=== PATIENT | male | born 1945 | race Caucasian/White ===

== ENCOUNTER → 2017-04-01 | Outpatient (CLI) | payer OTHER ==
[~2017-04-01] MED LIST: FLUT16SP19 NS; IOPAMIDOL 76% 75 ML INFUS BTL 0 ML ONE; IOPAMIDOL 76% 75 ML INFUS BTL 75 ML ONE; MET60GMPT TOP; MULT-820 PO; NS 0.9% 50 ML VIAL 0 ML ONE; NS 0.9% 50 ML VIAL 50 ML ONE; PANT40TA65 PO
--- NOTE | 2017-04-01 10:27 | RADIOLOGY IMAGING REPORT ---
FACILITY: [facility] PATIENT NAME: Fredy Bryant : 1945 MR: [id number] V: [id number] EXAM DATE: ORDERING PHYSICIAN: LAILA MIN TECHNOLOGIST: Location: [facility] Patient: Fredy Bryant : 1945 Visit/Account:[id number] Date of Sevice: 04/01/2017 THYROID HISTORY: Problems swallowing COMPARISON: October 10, 2007 FINDINGS: SIZE: Right lobe: 5.2 x 2.3 x 2.5 cm Left lobe: 5.1 x 1.4 x 1.3 cm Isthmus: 4 mm PARENCHYMA: Heterogeneous NODULES: Right lobe: * There is a large heterogeneous hypervascular mass encompassing much of the right lobe measuring 3. 6 x 2.2 x 2.8 cm. This has increased in size when compared to the prior study and appears to contain internal calcifications. Left lobe: * There are scattered hypoechoic nodules in the left lobe ranging in size between 3 mm and 9 mm Isthmus: * None discrete. VASCULARITY: Within normal limits. ADDITIONAL FINDINGS: None. IMPRESSION: There is a large heterogeneous 3.6 cm hypervascular nodule encompassing much of the right lobe of the thyroid gland containing internal calcifications. This is increased in size when compared the prior study. Ultrasound-guided fine-needle aspiration is recommended. Scattered hypoechoic nodules in the left lobe measuring up to 9 mm REFERENCE: 2015 [employer] Management Guidelines for Adult Patients with Thyroid Nodules and D ifferentiated Thyroid Cancer: The [place] Guidelines Task Force on Thyroid Nodul es and Differentiated Thyroid Cancer. SONOGRAPHIC PATTERNS: * Benign: Purely cystic nodules (no solid component); estimated risk of malignancy <1 percent; no bi opsy recommended. * Very Low Suspicion: Spongiform or partially cystic nodules without any of the sonographic features described in low, intermediate, or high suspicion patterns; estimated risk of malignancy <3 percent; consider FNA at > 2 cm (Observation without FNA is also a reasonable option). * Low Suspicion: Isoechoic or hyperechoic solid nodule, or partially cystic nodule with eccentric so lid areas, without microcalcification, irregular margin or ETE (extra-thyroidal extension), or taller than wide shape; estimated risk of malignancy 5-10 percent; recommend FNA at >1.5 cm. * Intermediate Suspicion: Hypoechoic solid nodule with smooth margins without microcalcifications, E TE (extra-thyroidal extension), or taller than wide shape; estimated risk of malignancy 10-20 percent ; recommend FNA at > 1 cm. * High Suspicion: Solid hypoechoic nodule or solid hypoechoic component of a partially cystic nodule with one or more of the following features: irregular margins (infiltrative, microlobulated), microc alcifications, taller than wide shape, rim calcifications with small extrusive soft tissue component, evidence of ETE (extra-thyroidal extension); estimated risk of malignancy >70-90 percent; recommend FNA at > 1 cm. NOTES: * Although a sonographically suspicious subcentimeter thyroid nodule without evidence of extrathyroi rose extension or sonographically suspicious lymph nodes may be observed with close sonographic follow -up rather than pursuing immediate FNA, patient age and preference may modify decision-making. A > 50% interval increase in nodule volume and/or development of new suspicious sonographic features are felt to be a valid reasons for potential re-aspiration of a nodule previously shown to have benig n FNA cytology. Report Dictated By: Kaycee Live MD at 04/01/2017 10:19 AM Report E-Signed By: Kaycee Live MD at 04/01/2017 10:23 AM MARISOLN:AMADOU
--- NOTE | 2017-04-01 10:43 | RADIOLOGY IMAGING REPORT ---
[place] [facility] [place] NAME: Fredy Bryant : 1945 MR: [id number] V: [id number] EXAM DATE: ORDERING PHYSICIAN: LAILA MIN TECHNOLOGIST: Location: [facility] Patient: Fredy Bryant : 1945 Visit/Account:[id number] Date of Sevice: 04/01/2017 CT ABDOMEN WITH AND WITHOUT CONTRAST CLINICAL INFORMATION: Liver mass TECHNIQUE: Axial CT images were obtained through the abdomen before and after injection of nonionic iodinated intravenous contrast. Reformatted coronal and sagittal images were also obtained. Pre cont rast and delayed images were obtained. Dose Lowering Technique One of the following dose optimization techniques was utilized in the performance of this exam: Autom ated exposure control; adjustment of the mA and/or kV according to the patient's size; or use of an i terative reconstruction technique. Specific details can be referenced in the facility's radiology C T exam operational policy. CONTRAST: 75ml of IV Isovue-370 contrast. COMPARISON: CT chest March 10, 2017. FINDINGS: Lower lung segovia: Limited views lower lung field are unremarkable. Liver: There Is a 2.1 x 1.6 cm x 1.5 mass in the lateral aspect right lobe of the liver. This exhibi ts some mild peripheral enhancement on the arterial phase images with some nodular internal enhanceme nt on the portal venous phase images. This appears to be further slight internal enhancement on the delayed images that follows blood pool. A typical hemangioma would demonstrate greater contrast enha ncement on the venous and delayed images although this could represent an atypical presentation of a hemangioma. Other solid hepatic lesions however are included in the differential diagnosis.. Biliary: Gallbladder appears unremarkable as well as the intra and extra hepatic biliary system. Pancreas: Normal appearance. Spleen: Normal appearance. Adrenal glands: Unremarkable. Kidneys / retroperitoneum: Subcentimeter hypodensity interpolar region of the left kidney is too smal l to characterize Bowel / peritoneum / mesenteries: The visualized small and large bowel appear unremarkable. Vessels: No significant atherosclerotic calcification seen throughout a nonaneurysmal abdominal aorta and branches. Musculoskeletal / Body wall: There are spondylotic changes of the visualized thoracolumbar spine. Th ere is a bulging disc at L4-5 Lymph node assessment: No pathologic adenopathy identified. IMPRESSION: 1. There is a 2.1 x 1.6 x 1.5 cm mass in the periphery of the right lobe the liver that exhibits mil d peripheral contrast enhancement on the arterial phase images with subtle nodular internal enhanceme nt on the portal venous phase images and further slight internal enhancement on the delayed images wh ich follows blood pool. A typical hemangioma with demonstrate greater contrast enhancement on the ve nous and delayed images although this could represent an atypical presentation of a hemangioma. Othe r solid hepatic lesions are not excluded. Short-term interval follow-up in three months versus an MR of the liver with and without contrast recommended for further evaluation depending upon the clinica l presentation and history.. 2. 3. Report Dictated By: Kaycee Live MD at 04/01/2017 10:23 AM Report E-Signed By: Kaycee Live MD at 04/01/2017 10:38 AM WSN:[email or web address]
== END ==
LOC: CT 03-25 01:00
PROVIDERS: ATTEND Nurse Practitioner Family
DX: E04.2 Nontoxic multinodular goiter (principal); R16.0 Hepatomegaly, not elsewhere classified; K76.89 Other specified diseases of liver
CPT/HCPCS: 74170; 76536; J7050; Q9967

== ENCOUNTER 2017-04-12 08:23 | Outpatient (RCR) | payer OTHER ==
[~2017-04-12 08:23] MED LIST changes: -IOPAMIDOL 76% 75 ML INFUS BTL 0 ML ONE; -IOPAMIDOL 76% 75 ML INFUS BTL 75 ML ONE; -NS 0.9% 50 ML VIAL 0 ML ONE; -NS 0.9% 50 ML VIAL 50 ML ONE
[2017-04-12 08:59] LABS: INR 1.04
[2017-04-14] MEDS ORDERED: GADOBENATE 529MG/1ML 15ML VIAL IVP ONE (10:17)
[2017-04-14] MEDS ORDERED: NS 0.9% 50 ML VIAL 50 ML ONE (10:17)
--- NOTE | 2017-04-14 15:24 | RADIOLOGY IMAGING REPORT ---
FACILITY[place] [facility] [place] NAME: Fredy Bryant : 1945 MR: [id number] V: [id number] EXAM DATE: ORDERING PHYSICIAN: LAILA MIN TECHNOLOGIST: Location: [facility] [place] Patient: Fredy Bryant : 1945 Visit/Account:[id number] Date of Sevice: 04/14/2017 ABDOMEN W W/O CONTRAST HISTORY: Liver mass ADDITIONAL HISTORY: None. TECHNIQUE: TECHNIQUE: Multiplanar multisequence magnetic resonance imaging of the abdomen without a nd with intravenous contrast. CONTRAST: 15 mL of MultiHance COMPARISON: CT abdomen April 01, 2017 FINDINGS: Visualized lung bases: Grossly unremarkable. Liver: The lateral aspect of the right lobe the liver there is a 1.5 x 1.5 x 1.3 cm hyperintense mass on the T2-weighted images. This does demonstrate mild puddling type contrast enhancement on the art erial phase images with slightly increased puddling type contrast enhancement on the delayed images. This does not completely enhance with contrast on the delayed images although likely represents an a typical presentation of a hemangioma. Gallbladder: Negative. Bile ducts: Nondistended and unremarkable. Spleen: Negative. Adrenal glands: Negative. Pancreas: Negative. Kidneys: Tiny left renal cysts Vessels/spaces/nodes: No bulky adenopathy or ascities. Visualized GI: Grossly unremarkable. Bones/soft tissues: Unremarkable. IMPRESSION: There is a 1.5 x 1.5 x 1.3 cm mass in the lateral aspect right lobe of the liver with contrast enhanc ement pattern not entirely typical of a benign hemangioma although most likely represents an atypical presentation of a hemangioma a follow-up CT or MR is recommended in six months unless clinical findi ngs warrant more immediate attention Report Dictated By: Kaycee Live MD at 04/14/2017 3:09 PM Report E-Signed By: Kaycee Live MD at 04/14/2017 3:20 PM WSN:[email or web address]
--- NOTE | 2017-04-14 16:58 | RADIOLOGY IMAGING REPORT ---
FACILITY: [facility] PATIENT NAME: Fredy Bryant : 1945 MR: [id number] V: [id number] EXAM DATE: ORDERING PHYSICIAN: LAILA MIN TECHNOLOGIST: Location: [facility] [place] Patient: Fredy Bryant : 1945 Visit/Account:[id number] Date of Sevice: 04/14/2017 Exam type: THYROID BIOPSY FINE NEEDLE ASP History: Right-sided thyroid nodule Comparison: Thyroid ultrasound April 01, 2017. Findings: Informed consent was obtained. The right-sided the patient's neck was prepped and draped in usual st erile fashion. Local anesthesia was accomplished with 1% lidocaine. Under sonographic guidance thre e 25-gauge FNA biopsies were obtained through the large complex right-sided thyroid nodule. [facility] given to the chief technologist for processing. The procedure was without apparent comp lication. IMPRESSION: 1. Successful sonographically guided right-sided FNA biopsy of the complex right thyroid mass Report Dictated By: Kaycee Live MD at 04/14/2017 4:53 PM Report E-Signed By: Kaycee Live MD at 04/14/2017 4:54 PM WSN:[email or web address]
== END 2017-04-14 18:00 | disposition home or self-care (01) ==
LOC: MRI 08:23
PROVIDERS: ATTEND Nurse Practitioner Family
DX: K76.89 Other specified diseases of liver (principal); E04.1 Nontoxic single thyroid nodule
CPT/HCPCS: 10022; 36415; 74183; 76942; 82565; 85610; 88104; 88172; A9577; J7050

== ENCOUNTER → 2017-06-08 | Outpatient (CLI) | payer OTHER ==
--- NOTE | 2017-06-08 14:00 | EKG ---
FACILITY: [facility] [place] PATIENT NAME: BENSON JAVED : [id number] MR: [id number] V: [id number] EXAM DATE: ORDERING PHYSICIAN: JOSE GONZALEZ TECHNOLOGIST: Julio Baca Reason : Blood Pressure : / mmHG Vent. Rate : 080 BPM Atrial Rate : 080 BPM P-R Int : 174 ms QRS Dur : 088 ms QT Int : 392 ms P-R-T Axes : 078 084 068 degrees QTc Int : 452 ms Normal sinus rhythm Normal ECG No previous ECGs available Confirmed by SAVANAH MCHUGH ([id number]) on 06/08/2017 11:45:58 PM Referred By: Confirmed By:SAVANAH MCHUGH
== END ==
LOC: RESP 13:50
PROVIDERS: ATTEND Otolaryngology
DX: Z01.810 Encounter for preprocedural cardiovascular examination (principal); E04.9 Nontoxic goiter, unspecified
CPT/HCPCS: 93005

== ENCOUNTER → 2017-06-11 | Outpatient (CLI) | payer OTHER ==
[2017-06-11 07:31] LABS: PLATELET COUNT, AUTOMATED 240 K/uL (150-450)
== END ==
LOC: LAB 07:12
PROVIDERS: ATTEND Nurse Practitioner Family
DX: E04.9 Nontoxic goiter, unspecified (principal); R53.83 Other fatigue
CPT/HCPCS: 36415; 82040; 82247; 82310; 82374; 82435; 82565; 82947; 84075; 84132; 84155; 84295; 84443; 84450; 84460; 84520; 85025

== ENCOUNTER 2017-06-18 01:51 | Observation (INO) | payer OTHER ==
[2017-06-18] VITALS (12 sets, daily range): BP systolic 108–143; BP diastolic 61–96
[~2017-06-18] VITALS: Ht 177.8 cm; Wt 77.1 kg
[2017-06-18] MEDS ORDERED: FAMOTIDINE 20 MG TAB PO ONE (06:15)
[2017-06-18] MEDS ORDERED: MIDAZOLAM 2 MG/2 ML VIAL IVP PRN (06:30)
[2017-06-18] MEDS ORDERED: LIDOCAINE/SOD BICARB 8.4% SYR ID ONE (06:30)
[2017-06-18] MEDS ORDERED: LIDO/EPI 1% MDV 1:100,000 20ML INFIL ONE (06:30)
[2017-06-18] MEDS ORDERED: ceFAZolin(*) 2GM/D5W 50ML 50 ML IVPB ONE (06:30)
[2017-06-18] MEDS ORDERED: OFLOXACIN 0.3% OP SOLN 5ML BTL ONE (06:30)
[2017-06-18] MEDS ORDERED: NORMOSOL R SOLN(*) 1000 ML BAG 1,000 ML IV PRN (06:30)
[2017-06-18] MEDS ORDERED: LIDOCAINE 2% IV 100 MG/5ML SYR ONE (07:13)
[2017-06-18] MEDS ORDERED: fentaNYL CITR 250 MCG/5 ML AMP ONE (07:13)
[2017-06-18] MEDS ORDERED: PROPOFOL EMUL(*) 10MG/ML 20 ML 20 ML ONE ×2 (07:14→07:34)
[2017-06-18] MEDS ORDERED: DEXAMETHASONE SOD PHOS 10MG/ML ONE (07:38)
[2017-06-18] MEDS ORDERED: ePHEDrine 25 MG/5 ML DISP.SYR IVP ONE ×2 (07:40→07:58)
[2017-06-18] MEDS ORDERED: ONDANSETRON 4 MG/2 ML VIAL ONE (08:10)
[2017-06-18] MEDS ORDERED: LR(*) 1000 ML BAG 1,000 ML IV PRN (09:04)
--- NOTE | 2017-06-18 09:04 | Post Operative Note ---
Operative Note - ENT Operative Day Date: Jun 18, 2017 Physicians Surgeon: Davis Floater Operator: Aimee Anesthesia: GETA Diagnosis Pre-Op Diagnosis: right ETD uninodular goiter Post-Op Diagnosis: same Procedure Procedure(s): right myringotomy and tympanostomy tube placement right thyroid lobectomy Specimen Removed:(Maybe N/A): right thyroid lobe Complications: none Fluids Estimated Blood Loss: 50 ml JOSE GONZALEZ JR, MD Jun 18, 2017 09:03
[2017-06-18] MEDS ORDERED: APAP/HYDROCODONE 325/5 TAB PO PRN (09:05)
[2017-06-18] MEDS ORDERED: MORPHINE 2 MG/ML SYR IVP PRN (09:05)
[2017-06-18] MEDS ORDERED: ACETAMINOPHEN 325 MG TAB PO PRN (09:05)
[2017-06-18] MEDS ORDERED: ONDANSETRON 4 MG ODT TABDP SL PRN (09:05)
--- NOTE | 2017-06-18 14:46 | OPERATIVE REPORT 1 ---
EVENT DATE: June 18, 2017 SURGEON: Gokul Cannon MD ANESTHESIOLOGIST: Jose Angel Carolina MD ANESTHESIA: General endotracheal. VICE PRESIDENT INTEGRATED: Brittni Yu PROCEDURES PERFORMED 1. Right thyroid lobectomy. 2. Right myringotomy and tympanostomy tube insertion. PREOPERATIVE DIAGNOSES 1. Uninodular goiter. 2. Right eustachian tube dysfunction. POSTOPERATIVE DIAGNOSES 1. Uninodular goiter. 2. Right eustachian tube dysfunction. INDICATIONS Please refer to the preoperative note. DESCRIPTION OF PROCEDURE The patient was positively identified in the preoperative area. He was accompanied there by his . Risks were again explained and included, but were not limited to bleeding, infection, tympanic membrane perforation, injury to the recurrent laryngeal nerve, transient or permanent dysphonia, and those associated with anesthesia. He acknowledged understanding of those risks. He was then brought back to the operating suite, laid supine on the operating table , and anesthesia was administered. Once asleep, the patient was positioned for the tympanostomy tube placement. A speculum was placed in the right external auditory canal. The microscope was mounted in place. The tympanic membrane was visualized. A myringotomy was then made in the anterior-inferior quadrant. A T-tube was then carefully placed through the myringotomy and positioned into place. Floxin drops were instilled. The patient was then repositioned for the thyroidectomy. A favorable neck crease was identified overlying the thyroid gland. An approximately 5 cm incision was planned and marked. Approximately 2 mL of 1% lidocaine with epinephrine was infiltrated. The patient was then prepped and draped in the usual sterile fashion. The aforementioned incision was then made with a 15 blade. The underlying subcutaneous tissue was then dissected with Bovie electrocautery. The platysma muscle was identified and divided with Bovie electrocautery. Subplatysmal flaps were elevated superiorly to the level of the thyroid notch and inferiorly to the above the sternal notch. The strap musculature was identified and divided along the median raphe. The strap musculature was then carefully carefully elevated off the right thyroid lobe. This was found to be markedly enlarged. I then dissected out the superior pole vessels. This was come across with the Harmonic scalpel. I then carefully dissected the lobe from the surrounding connective tissue. Both parathyroid glands were felt to be identified and preserved in situ. The recurrent laryngeal nerve was identified and traced to its entrance into the trachea. I then came across the inferior lobe vessels with the Harmonic scalpel. I then carefully rotated the lobe medially and divided it from the trachea at Sharif ligament. The Harmonic scalpel was then utilized to divide the right lobe and isthmus from the left lobe. This was sent for permanent pathology. The wound was then copiously irrigated with normal saline solution. A Valsalva maneuver was performed. Hemostasis was assumed. Surgicel Fibrillar was placed in the wound bed. The strap muscles and the platysma were then closed with interrupted chromic stitch. The skin was then closed in a multilayer fashion. The patient was then turned to Anesthesia for emergency. Estimated blood loss was 50 mL. There were no complications. MTDD
[2017-06-18] MEDS ORDERED: OFLO10DR3 RIGHT EAR (16:21)
[2017-06-18] MEDS ORDERED: LOR5/325 PO (16:21)
[2017-06-18] MEDS ORDERED: CEFU500T10 PO (16:21)
== END 2017-06-18 16:21 | disposition home or self-care (01) ==
LOC: OR 01:51 → MED 09:55
PROVIDERS: ADMIT Otolaryngology; ATTEND Otolaryngology
DX: E04.1 Nontoxic single thyroid nodule (principal); H69.81 Other specified disorders of Eustachian tube, right ear
CPT/HCPCS: 60225; 88307; G0378; J1100; J2001; J2405; J2704; J3010; J0690

== ENCOUNTER → 2017-07-14 | Outpatient (REF) | payer OTHER ==
[~2017-07-14] MED LIST changes: +CEFU500T10 PO; +LOR5/325 PO; +OFLO10DR3 RIGHT EAR
== END ==
LOC: ZZSENDIN 12:00
PROVIDERS: ATTEND Urology
DX: C61 Malignant neoplasm of prostate (principal)
CPT/HCPCS: 88305; 88344

== ENCOUNTER → 2017-09-28 | Outpatient (CLI) | payer OTHER ==
[~2017-09-28] MED LIST changes: +BARIUM SULFATE 148 GM POWDER ONE; +BARIUM SULFATE 240 ML ORAL SUS (NECTAR) ONE; +MULT1CAP59 PO
--- NOTE | 2017-09-28 13:20 | RADIOLOGY IMAGING REPORT ---
[place] [facility] [place]IENT NAME: Fredy Bryant : 1945 MR: [id number] V: [id number] EXAM DATE: ORDERING PHYSICIAN: NELIA RDORIGUEZ TECHNOLOGIST: Location: [facility] [place] Patient: Fredy Bryant : 1945 Visit/Account:[id number] Date of Sevice: 09/28/2017 Exam type: ESOPH VIDEO SWALLOWING History: Dysphasia Comparison: None. Findings: The modified barium swallow was performed by speech pathologist. The patient received various liquid s and solids and a portion of the barium tablet. Please see the speech pathologist report for comple te details. The fluoroscopy dose area product was 374.45 micro-Coll[place] per meter squared. IMPRESSION: 1. As above Report Dictated By: Kaycee Live MD at 09/28/2017 1:15 PM Report E-Signed By: Kaycee Live MD at 09/28/2017 1:17 PM WSN:[email or web address]
--- NOTE | 2017-09-28 15:03 | SLP MODIFIED BARIUM SWALLOW ---
Speech Language Pathology Modified Barium Swallow Evaluation Report Date of Evaluation: 09/28/17 Patient Name: Fredy Bryant Patient : 1945 Physician: Dr. Luis Antonio Henriquez Clinician: Samira Mario M.S., [facility]OUR[facility] Brittni Mckee B.A., [facility] [place] BACKGROUND The patient is a 72 yr old male. The patient was referred for an MBS by his physician to assess swallow structure and function as indicated by s/s of pharyngeal dysphagia including coughing/choking, nasal regurgitation, prolonged mastication, and a globus sensation upon the initiation of the swallow. Pt reports xerostomia and inability to produce saliva. 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 Oxygen Supplementation: No Level of Consciousness: Non altered Cognitive/Linguistic: WNL Orientation: x3 Language: -expressive: nonaphasic -receptive: nonaphasic Speech: -non-apraxic -non-dysarthric Voice -Dysphonia: none -Nasal emission: Yes -Hypernasality: No -Hyponasality: Yes -Wet Vocal Quality: No Non-verbal Oral Structure and Function: minimal elevation of vellum during oral [facility] exam (performed condensed oral [facility] exam due to time restraints) Pain with Swallow: Denies MODIFIED BARIUM SWALLOW In conjunction with radiology, lateral view and A/P view with trials of the following consistencies: thin barium liquid (carbonated/noncarbonated), nectar thick barium liquid, barium marked pureed, mechanical soft, regular food, mixed consistencies, and a 1cm barium pill. ORAL STAGE Thin Liquids: Moderate dysphagia witnessed. Slow A-P transit with delayed swallow initiation. Unproductive tongue pumping observed. Reduced posterior tongue function/elevation resulting in poor bolus control entering the oropharynx. Bolus residue on posterior lingual surface. [place] Thick Liquids: Moderate dysphagia witnessed. Slow A-P transit with delayed swallow initiation. Unproductive tongue pumping observed. Reduced posterior tongue function/elevation resulting in poor bolus control entering the oropharynx. Bolus residue on posterior lingual surface. Pureed Foods: Moderate dysphagia witnessed. Slow A-P transit with delayed swallow initiation. Unproductive tongue pumping observed. Mechanical Soft Foods: Moderate dysphagia witnessed. Slow A-P transit with delayed swallow initiation. Unproductive tongue pumping observed. Regular Foods: Moderate dysphagia witnessed. Slow A-P transit with delayed swallow initiation. Unproductive tongue pumping observed. Reduced posterior tongue function/elevation resulting in poor bolus control entering the oropharynx. Mixed: Moderate dysphagia witnessed. Slow A-P transit with delayed swallow initiation. Unproductive tongue pumping observed. Reduced posterior tongue function/elevation resulting in poor bolus control entering the oropharynx. Bolus residue on posterior lingual surface. Barium Pill: no evidence of dysphagia. WNL. PHARYNGEAL STAGE Thin Liquid: Moderate to severe evidence of dysphagia. 15ml Penetration/ Aspiration scale*-Level 5: material enters the airway, contacts the vocal folds , and is not ejected from the airway. Cup rim sip, Penetration/Aspiration scale* - Level 3: material enters the airway, remains above the vocal folds, and is not ejected from the airway. Compensatory: Chin tuck, Penetration/Aspiration scale*- Level 3: material enters the airway, remains above the vocal folds, and is not ejected from the airway. [place] Thick Liquids: Moderate to severe evidence of dysphagia. Penetration/ Aspiration Scale*- Level 1: material does not enter airway. Significant residuals in epiglottic vallecula and pyriform sinus not cleared with cued second or third swallows. Moderate residuals on anterior pharyngeal wall. Poor UES function Pureed Food: Moderate evidence of dysphagia. Moderate residuals on anterior pharyngeal wall, epiglottic vallecula, and pyriform sinus with pooling at UES. Delayed onset of swallow and premature spillage into epiglottic vallecula.. Compensatory: Not cleared with second swallow. Mechanical Soft Foods: Moderate to severe evidence of dysphagia. Penetration/ Aspiration scale*- Level 2 material enters the airway, remains above the vocal folds, and is ejected from the airway. Moderate residuals on anterior pharyngeal wall. Significant stasis at epiglottic vallecula and pyriform sinus not cleared with cued second swallow or liquid wash. With liquid wash, Penetration/Aspiration scale*- Level 2: material enters the airway, remains above the vocal folds, and is ejected from the airway. Regular Food Consistency: Moderate evidence of dysphagia. Moderate stasis at epiglottic vallecula and pyriform sinus with smaller than average bolus, cleared with second cued swallow. Mixed Food Consistency: Severe evidence of dysphagia. Penetration/Aspiration scale*- Level 8 material enters the airway, passes below the vocal folds, and no effort is made to eject. of 1 cm barium pill: Severe evidence of dysphagia. Pill stuck at level of epiglottic vallecula not cleared with thin liquid, nectar liquid, puree, supraglottic swallow, regular food consistency, head turn to the right or left, chin tuck, or carbonated liquid. *(Leona et al. 1996) ESOPHAGEAL STAGE Narrowing observed inferior to UES. Pt reported previous unsuccessful dilation attempts. Cervical Esophagus: Materials witnessed clearing from cervical esophagus WNL. Thoracic Esophagus: Materials witnessed clearing from upper/mid/lower thoracic esophagus WNL. KAMARI: none witnessed. Laryngopharyngeal Reflux (LPR) No material reached proximal esophagus or was regurgitated passed UES into pharynx. SUMMARY Aspiration Risk: Increased d/t severe stasis in epiglottic vallecula and pyriform sinus with thin liquids and all food consistencies and evidence of silent aspiration on mixed consistencies and penetration on thin liquid, mechanical soft and flash penetration with nectar thick with barium pill. BOT, pharyngeal and hyolaryngeal movement all appear to be decreased. Stasis in pyriform sinus may be d/t decreased UES opening or narrowing inferior to UES. Pt does not consistently reswallow to clear stasis and reports consuming all food with liquid. Chin tuck with thin liquid appeared to increase stasis in the vallecula. Pt located a globus sensation by pointing above thyrohyoid cartilage. Severe oral stage dysphagia witnessed. Poor bolus formation and propulsion may be d/t poor posterior lingual function/elevation. Decreased posterior elevation and movement of the vellum decreases contact with posterior pharyngeal wall, increasing the risk of nasal regurgitation. Asymmetrical movement of liquid and solid boluses to the left through the pharynx were witnessed during AP view. Cues for chin tuck to protect airway during thin liquid swallow: Unsuccessful Head turn/tilt left or right did not significantly improve swallow function. 1.Dysphagia Severity Rating Scale (Gramigna, 2006; Juju et. al., 1990): Moderate dysphagiasignificant potential for aspiration exists. Trace aspiration of one or more consistencies may be seen under videofluoroscopy. Patient may eat certain consistencies by using specific techniques to minimize potential for aspiration and/or to facilitate swallowing. 2. Diet: No need for modification in consistency of diet is indicated. 2. Modification in consistency of diet is indicated. 3. Patient was provided with verbal education regarding swallow anatomy and safe swallow recommendations. RECOMMENDATIONS Verbal and written information provided at time of evaluation. 1. Speech Therapy: 3x week for patient education and oral / laryngeal / pharyngeal / dysphagia therapy program. 2. Diet Modifications: Dysphagia Diet- Level 6: Total oral intake with no special preparation, but must avoid specific foods or liquid items 3. Pills: Crushed with thickened liquids or purees. RECOMMENDATIONS Verbal and written information provided at time of evaluation. 1. Provide Pt education on swallow safety 2. Swallow Therapy 3wk/12wk PLAN OF CARE Short Term Goals 1. Patient will receive education regarding safe swallow precautions, diet modification, and compensatory techniques and provide verbal demonstration of comprehension. 2.The patient will participate in an 12wk dysphagia exercise based therapy program to address oropharyngeal dysphagia. 3. Patient will complete oral motor exercises to increase oral strength , accuracy and coordination of lingual, buccal, labial muscles for mastication and bolus manipulation of regular food consistencies without signs of oral stage dysphagia. Thank you for this referral. Please call [phone] to contact the [employer]LECT[employer] JOURNEYMAN. Samira Mario M.S., [facility] [*] POPPYD
== END ==
LOC: RAD 07:31
PROVIDERS: ATTEND Otolaryngology
DX: R13.11 Dysphagia, oral phase (principal); R13.13 Dysphagia, pharyngeal phase; R13.19 Other dysphagia
CPT/HCPCS: 74230

== ENCOUNTER 2017-10-12 11:26 | Outpatient (RCR) | payer OTHER ==
--- NOTE | 2017-10-04 10:12 | RADIOLOGY IMAGING REPORT ---
FACILITY: [facility] PATIENT NAME: Fredy Bryant : 1945 MR: [id number] V: [id number] EXAM DATE: ORDERING PHYSICIAN: MAGDY COPELAND TECHNOLOGIST: [facility] Patient: Fredy Bryant : 1945 Visit/Account:[id number] Date of Sevice: 10/04/2017 EXAMINATION: Orbit radiograph single view HISTORY: Pre-MRI screening. History of working in metal shop. COMPARISON: None. FINDINGS: Single view of the orbits is obtained. No radiopaque or metallic foreign bodies of either orbit. Visualized bony structures are intact. IMPRESSION: Orbits are cleared for MRI. Report Dictated By: Anna Cristina MD at 10/04/2017 10:07 AM Report E-Signed By: Anna Cristina MD at 10/04/2017 10:08 AM WSN:[id number]
--- NOTE | 2017-10-04 14:02 | RADIOLOGY IMAGING REPORT ---
FACILITY: [facility] PATIENT NAME: Fredy Bryant : 1945 MR: [id number] V: [id number] EXAM DATE: ORDERING PHYSICIAN: MAGDY COPELAND TECHNOLOGIST: Location: [facility] - [place], [place] Patient: Fredy Bryant : 1945 Visit/Account:[id number] Date of Sevice: 10/04/2017 ABDOMEN W W/O CONTRAST HISTORY: Indeterminant hepatic mass; follow-up. TECHNIQUE: Multiplanar multisequence magnetic resonance imaging of the abdomen without and with intr avenous contrast. CONTRAST: 15 mL MultiHance IV COMPARISON: 04/14/2017 MRI, 04/01/2017 CT FINDINGS: Visualized lung bases: Negative. Liver: Within normal limits for size and morphology. No MR evident steatosis. Within hepatic segme nt 5 is a 1.4 x 1.7 cm T2 hyperintense and T1 hypointense lesion, not significantly changed allowing for differences in measurement technique and with slowly progressive centripetal nodular enhancement isointense to blood pool, again most consistent with a benign cavernous hemangioma. Gallbladder: Negative. Bile ducts: Nondistended and grossly unremarkable. Spleen: Negative. Adrenals: Negative. Pancreas: Stable, approximately 1 cm, macroscopic fatty focus within pancreatic tail, not significan tly changed from CT 02/2017 and most likely invagination of adjacent peripancreatic fat versus a smal l lipoma. Kidneys/: Several small cortical and peripelvic cysts left greater than right kidney. Visualized GI: Grossly unremarkable. Vessels/spaces/nodes: Mild aortic atherosclerosis. No adenopathy. No free fluid. Bones/soft tissues: Unremarkable. IMPRESSION: 1. Stable right hepatic lesion most consistent with benign cavernous hemangioma. 2. Other chronic and/or benign-appearing changes detailed above. Report Dictated By: Zane Shen MD at 10/04/2017 1:43 PM Report E-Signed By: Zane Shen MD at 10/04/2017 1:59 PM WSN:[id number]
[~2017-10-12 11:26] MED LIST changes: -BARIUM SULFATE 148 GM POWDER ONE; -BARIUM SULFATE 240 ML ORAL SUS (NECTAR) ONE; +GADOBENATE 529MG/1ML 15ML VIAL IVP ONE; +NS 0.9% 25 ML BAG 0 ML ONE; +NS 0.9% 25 ML BAG 50 ML ONE
[2017-10-12] MEDS ORDERED: LEVO50TA86 PO (17:35)
== END 2017-10-13 13:47 | disposition home or self-care (01) ==
LOC: RAON 11:26
PROVIDERS: ATTEND Radiology Radiation Oncology
DX: C61 Malignant neoplasm of prostate (principal); Z85.22 Personal history of malignant neoplasm of nasal cavities, middle ear, and accessory sinuses; Z92.3 Personal history of irradiation; R93.5 Abnormal findings on diagnostic imaging of other abdominal regions, including retroperitoneum
CPT/HCPCS: 36415; 70030; 74183; 82565; 99212; 99213; A9577

== ENCOUNTER 2017-12-13 13:15 | Outpatient (RCR) | payer MEDICARE, OTHER ==
[~2017-12-13 13:15] MED LIST changes: -GADOBENATE 529MG/1ML 15ML VIAL IVP ONE; +LEVO50TA86 PO; -NS 0.9% 25 ML BAG 0 ML ONE; -NS 0.9% 25 ML BAG 50 ML ONE
--- NOTE | 2017-12-17 12:18 | SWALLOW EVALUATION ---
Speech Therapy Dysphagia Evaluation Date of Evaluation: 12-13-17 Patient Name: Fredy Bryant Patient : 1945, 72yr Physician: Dr. Luis Antonio Henriquez Clinician: Valerie Wang MS, CCC-ACID WASH OPERATOR BACKGROUND The patient's preferred name is Juan'. 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 Current symptoms include dysphagia include coughing/choking with meals, nasal regurgitation of food and liquid, prolonged mastication, and globus sensation following solids swallow. 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 He received an esophageal dilation approximately 1.5 years ago. He reports decreased symptoms for approximately 6m post procedure. He received an MBS at [facility] on 09-28-2017 with results as described below. EVALUATION MBS Results 09-28-17: Aspiration Risk: Increased d/t severe stasis in epiglottic vallecula and pyriform sinus with thin liquids and all food consistencies and evidence of silent aspiration on mixed consistencies and penetration on thin liquid, mechanical soft and flash penetration with nectar thick with barium pill. BOT, pharyngeal and hyolaryngeal movement all appear to be decreased. Stasis in pyriform sinus may be d/t decreased UES opening or narrowing inferior to UES. Pt does not consistently re-swallow to clear stasis and reports consuming all food with liquid. Chin tuck with thin liquid appeared to increase stasis in the vallecula. Pt located a globus sensation by pointing above thyrohyoid cartilage. Severe oral stage dysphagia witnessed. Poor bolus formation and propulsion may be d/t poor posterior lingual function/elevation. Decreased posterior elevation and movement of the vellum decreases contact with posterior pharyngeal wall, increasing the risk of nasal regurgitation. Asymmetrical movement of liquid and solid boluses to the left through the pharynx were witnessed during AP view. Cues for chin tuck to protect airway during thin liquid swallow: Unsuccessful Head turn/tilt left or right did not significantly improve swallow function. Dysphagia Severity Rating Scale (Gramigna, 2006; Juju et. al., 1990): Moderate dysphagia. Significant potential for aspiration exists. Trace aspiration of one or more consistencies may be seen under videofluoroscopy. No modification in diet was recommended following the MBS as symptoms were consistent across consistencies. The patient reports no changes in symptoms post MBS. He reports he has not made any changes to incorporate safe swallow recommendations as received following the procedure. Oxygen Supplementation: No Level of Consciousness: Non altered Cognitive/Linguistic: WNL Orientation: x3 Language: -expressive: nonaphasic -receptive: nonaphasic Motor Speech: -non-apraxic -Diadochokinetic Rates Sequential: rate of production WNL. Nasal emission present Alternating: rate of production lower than expected with error. Nasal emission present. Voice Pt reports vocal changes including increased hoarseness and wet vocal quality following deglutition -Nasal emission: Yes -Hypernasality: No -Hyponasality: Yes -Wet Vocal Quality: No Non-verbal Oral Structure and Function: minimal movement of the velum during phonation. Very small uvula . Dentition is good overall. Pt reports strict oral care protocol of at least 20min/day. Pain with Swallow: Denies RECOMMENDATIONS Verbal and written information provided at time of evaluation. 1. Swallow Therapy 3wk/12wk 3. Pills: Crushed with thickened liquids or purees. PLAN OF CARE Short Term Goals 1. Patient will receive education regarding safe swallow precautions, diet modification, and compensatory techniques and provide verbal demonstration of comprehension. 2.The patient will participate in an 12wk dysphagia exercise based therapy program to address oropharyngeal dysphagia. 3. Patient will complete oral motor exercises to increase oral strength , accuracy, and coordination of muscles of oral phase of deglutition with min signs of oral stage dysphagia. Prognosis: Fair to Good based on time post onset. Thank you for this referral. Please call [phone] Valerie Wang M.S., CCC-ACID WASH OPERATOR [facility] Cert[facility] Physician Signature Date MTDD
[2017-12-28] MEDS ORDERED: OFLO5DRO41 RIGHT EAR (09:19)
== END 2017-12-13 18:00 | disposition home or self-care (01) ==
LOC: ST 13:15
PROVIDERS: ATTEND Nurse Practitioner Family
DX: R13.10 Dysphagia, unspecified (principal); R47.89 Other speech disturbances

== ENCOUNTER → 2017-12-28 | Outpatient (CLI) | payer MEDICARE, OTHER ==
[~2017-12-28] MED LIST changes: +OFLO5DRO41 RIGHT EAR
== END ==
LOC: RESP 00:51
PROVIDERS: ATTEND Nurse Practitioner Family
DX: R06.02 Shortness of breath (principal)
CPT/HCPCS: 94060; 94726; 94729

== ENCOUNTER 2018-04-18 13:05 | Outpatient (RCR) | payer OTHER | END 2018-04-18 15:42 | disposition home or self-care (01) | LOC: RAON 13:05 | PROVIDERS: ATTEND Radiology Radiation Oncology | DX: C61 Malignant neoplasm of prostate (principal); Z85.22 Personal history of malignant neoplasm of nasal cavities, middle ear, and accessory sinuses; Z92.3 Personal history of irradiation; R93.5 Abnormal findings on diagnostic imaging of other abdominal regions, including retroperitoneum ==

== ENCOUNTER 2018-04-19 09:37 | Outpatient (RCR) | payer OTHER ==
--- NOTE | 2018-04-19 21:32 | ONCOLOGY FOLLOW UP NOTE ---
EVENT DATE: April 19, 2018 CHIEF COMPLAINT/REASON FOR VISIT 1. Patient is here to review updated PSA. He is on active surveillance following prostate carcinoma biopsy 07/14/17. 2. Patient has a history of nasopharyngeal carcinoma which was treated with external beam radiation therapy in [place] in 1985. No evidence of recurrence. HISTORY OF PRESENT ILLNESS Patient is here for review of updated PSA. In April of this past year, his PSA was 6.4 ng/mL. He had a prostate biopsy by Dr. Madrigal on 07/14/2017 which demonstrated a Ema 6 adenocarcinoma in three of 12 core biopsies (left base, right lateral middle, right lateral apex). Prostate volume was 30 cc. Patient electing for surveillance with treatment if PSA rises significantly. Patient has no voiding issues. He generally does not get up at night. No urgency or excessive frequency. PSA karolyn after the biopsy to 8.0 in August, then started to fall back to 7.7 in November and presently is 7.2 ng/mL on 04/06/18. Patient has the blood test of the wellness screening from [facility]. Denies any bone pain. PAST MEDICAL HISTORY 1. Prostate carcinoma. 2. Malignant neoplasm nasopharynx 1985. 3. Nephrolithiasis 1999. 4. Benign cavernous hemangioma of the right lobe of the liver. SURGICAL HISTORY 1. Partial thyroidectomy 05/2017 (benign) by Dr. Cannon. 2. Prostate carcinoma with biopsy 07/14/17. 3. Nasopharyngeal biopsy 1985. RADIATION HISTORY Patient treated to 7200 cGy in 1985 in [place]. ALLERGIES None. MEDICATIONS 1. Flonase. 2. MetroGel topical. 3. Multivitamin. 4. Protonix. 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 He is a nonsmoker. Social alcohol use. FAMILY HISTORY Father had prostate carcinoma. REVIEW OF SYSTEMS Ten-point review of systems is negative with exception of some altered swallowing function which is long-standing related to prior treatment in 1985 of carcinoma. PHYSICAL EXAMINATION GENERAL: Pleasant, 72-year-old male, medium to tall build. Performance status by KPS is 90. NECK: No lymphadenopathy. LUNGS: Clear bilaterally. HEART: Sounds regular. ABDOMEN: Soft. RECTAL: Exam was performed today. A medium-sized gland with no discrete nodularity or tenderness. Gland was roughly symmetric. IMPRESSION AND PLAN Overall, the patient's clinical status is stable at this time. He is monitoring his PSA closely and states he would certainly consider therapy if the PSA rises significantly. Since the PSA appears stable over the last six months, will continue to monitor the patient with Dr. Madrigal. He will follow up with Dr. Madrigal in three months and return here in six months. Consider endoscopic visualization of the nasopharynx at his next appointment depending on whether that procedure has been performed by other providers or not. All questions answered to his satisfaction over a 40-minute followup appointment, greater than 30 minutes spent face to face with the patient. MARTÍNEZ
== END 2018-05-02 08:34 | disposition home or self-care (01) ==
LOC: RAON 09:37
PROVIDERS: ATTEND Radiology Radiation Oncology
DX: C61 Malignant neoplasm of prostate (principal); Z85.22 Personal history of malignant neoplasm of nasal cavities, middle ear, and accessory sinuses; Z92.3 Personal history of irradiation; R93.5 Abnormal findings on diagnostic imaging of other abdominal regions, including retroperitoneum; C11.9 Malignant neoplasm of nasopharynx, unspecified

== ENCOUNTER → 2018-06-21 | Outpatient (CLI) | payer MEDICARE, OTHER ==
[~2018-06-21] MED LIST changes: +CIPR1VIA2 RIGHT EAR
== END ==
LOC: LAB 13:22
PROVIDERS: ATTEND Otolaryngology
DX: E89.0 Postprocedural hypothyroidism (principal)
CPT/HCPCS: 36415; 84443

== ENCOUNTER → 2018-07-11 | Outpatient (CLI) | payer MEDICARE, OTHER | LOC: LAB 10:13 | PROVIDERS: ATTEND Urology | DX: C61 Malignant neoplasm of prostate (principal) | CPT/HCPCS: 36415; 84153 ==

== ENCOUNTER → 2018-07-13 | Outpatient (REF) | payer MEDICARE, OTHER | LOC: ZZSENDIN 12:00 | PROVIDERS: ATTEND Urology | DX: C61 Malignant neoplasm of prostate (principal); N41.1 Chronic prostatitis | CPT/HCPCS: 88305; 88344 ==

== ENCOUNTER 2018-09-19 15:53 | Outpatient (RCR) | payer MEDICARE, OTHER | END 2018-09-20 09:00 | disposition home or self-care (01) | LOC: RAON 15:53 | PROVIDERS: ATTEND Radiology Radiation Oncology | DX: Z02.9 Encounter for administrative examinations, unspecified (principal) ==